=== PATIENT | female | born 2005 | race Caucasian/White ===

== ENCOUNTER 2025-04-23 19:49 | Emergency (ER) | payer OTHER ==
[~2025-04-23] VITALS: Ht 160 cm; Wt 113.4 kg
[2025-04-23] MEDS ORDERED: DASETTA 1-35-21 EACH PO (20:04)
== END 2025-04-23 20:01 | disposition home or self-care (01) ==
LOC: ER 19:49
DX: Z76.0 Encounter for issue of repeat prescription (principal); Z79.3 Long term (current) use of hormonal contraceptives
CPT/HCPCS: 99281

== ENCOUNTER 2025-06-22 10:30 | Emergency (ER) | payer OTHER ==
[~2025-06-22] VITALS: Ht 157.5 cm; Wt 113.4 kg
[~2025-06-22 10:30] MED LIST: DASETTA 1-35-21 EACH PO
[2025-06-22 11:40] LABS: Influenza A, PCR NEGATIVE (NEGATIVE); Influenza B, PCR NEGATIVE (NEGATIVE); Resp Syncytial Virus, PCR NEGATIVE (NEGATIVE); SARS-Cov-2 (COVID-19) PCR, MMC NEGATIVE (NEGATIVE)
== END 2025-06-22 12:50 | disposition home or self-care (01) ==
LOC: ER 10:30
PROVIDERS: Student in an Organized Health Care Education/Training Program
DX: J06.9 Acute upper respiratory infection, unspecified (principal)
CPT/HCPCS: 71046; 87637; 99283-25